=== PATIENT | female | born 1940 | race Caucasian/White ===

== ENCOUNTER 2020-02-06 08:24 | Outpatient (REF) | payer OTHER, SELFPAY | END 2020-02-06 08:25 | disposition home or self-care (01) | LOC: HO.SCI 08:24 | DX: Z13.89 Encounter for screening for other disorder (principal) ==

== ENCOUNTER 2020-02-16 12:42 | Outpatient (REF) | payer OTHER, SELFPAY ==
--- NOTE | 2020-02-16 12:46 | CT_ITS ---
EXAMINATION: CT HEAD WITHOUT CONTRAST CLINICAL INFORMATION: Dysphagia. COMPARISON: None TECHNIQUE: Contiguous axial imaging was performed from the skull base to vertex without intravenous administration of contrast. This CT examination was performed using dose optimization techniques as appropriate, variously including the following: *Automated exposure control *Adjustment of mA and/or kV according to patient size (this includes techniques or standardized protocols for targeted exams where dose is matched to indication/reason for exam; i.e. extremities or head) *Use of iterative reconstruction technique DLP: 722 mGy-cm FINDINGS: There is no evidence of acute intracranial hemorrhage or territorial infarction. No abnormal mass effect or midline shift is seen. There is mild periventricular hypodensity suggestive of chronic small vessel ischemic changes. No extra-axial fluid collections are identified. The lateral ventricles are symmetrical and mildly prominent. There is prominent bifrontal CSF space likely from volume loss. There is benign hyperostosis frontalis interna. The osseous structures and soft tissues are normal. The mastoid air cells and visualized portions of the paranasal sinuses are well aerated. CT/CT head/brain wo con IMPRESSION: 1. No acute intracranial process seen. 2. Mild chronic small vessel ischemic changes.
== END 2020-02-16 12:43 | disposition home or self-care (01) ==
LOC: HO.CT 12:42
PROVIDERS: PCP Internal Medicine; Visit Provider Psychiatry & Neurology Neurology
DX: R47.02 Dysphasia (principal)
CPT/HCPCS: 70450

== ENCOUNTER 2022-01-14 10:57 | Outpatient (REF) | payer OTHER, SELFPAY ==
[2022-01-14 12:29] LABS: Anion Gap 16 (12-20); Blood Urea Nitrogen 22 mg/dL (9-16); Calcium 9.2 mg/dL (8.4-10.2); Carbon Dioxide 24 mmol/L (22-29); Chloride 107 mmol/L (96-108); Estimated Glomerular Filt Rate > 60; Glucose Random 90 mg/dL (60-115); Potassium 4.8 mmol/L (3.3-5.1); Sodium 142 mmol/L (135-145)
[2022-01-14 12:54] LABS: Thyroid Stimulating Hormone 1.12 uIU/mL (0.32-4.0)
[2022-01-14 13:34] LABS: Folate > 20.0 ng/mL (> or = 4.0); Vitamin B12 > 2000 pg/mL (200-900)
== END 2022-01-14 10:58 | disposition home or self-care (01) ==
LOC: HO.LAB 10:57
PROVIDERS: PCP Family Medicine; Visit Provider Psychiatry & Neurology Neurology
DX: G31.84 Mild cognitive impairment of uncertain or unknown etiology (principal)
CPT/HCPCS: 36415; 80048; 82607; 82746; 84443

== ENCOUNTER 2022-08-01 11:54 | Outpatient (REF) | payer OTHER, SELFPAY ==
--- NOTE | ~2022-08-01 | MR_ITS ---
EXAMINATION: MR BRAIN WITHOUT CONTRAST CLINICAL INFORMATION: Stroke. COMPARISON: Head CT 02/16/2020. TECHNIQUE: Multiplanar, multisequence imaging of the brain was performed without intravenous contrast. FINDINGS: There is no acute infarction, hemorrhage, mass, or extra-axial fluid collection. Mild to moderate patchy foci of T2/FLAIR hyperintensity are seen within the cerebral white matter and lenora, typical of chronic microangiopathy. The ventricles and sulci are commensurate with mild degree of brain parenchymal volume loss. Chronic lacunar infarcts are seen within the bilateral basal ganglia and thalami. The major arterial flow voids appear preserved at the skull base. The orbits appear normal. Degenerative changes are seen at the atlantoaxial articulation. MR/MR head/brain wo con IMPRESSION: No acute infarct, mass lesion, intracranial hemorrhage, or evidence of hydrocephalus. 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
== END 2022-08-01 11:55 | disposition home or self-care (01) ==
LOC: HO.MRI 11:54
PROVIDERS: PCP Family Medicine; Visit Provider Psychiatry & Neurology Neurology
DX: I63.9 Cerebral infarction, unspecified (principal)
CPT/HCPCS: 70551

== ENCOUNTER 2023-04-14 07:52 | Outpatient (REF) | payer OTHER, SELFPAY | END 2023-04-14 07:53 | disposition home or self-care (01) | LOC: HO.SH 07:52 | PROVIDERS: Visit Provider Family Medicine | DX: Z01.118 Encounter for examination of ears and hearing with other abnormal findings (principal); H90.3 Sensorineural hearing loss, bilateral | CPT/HCPCS: 92557; 92567 ==